=== PATIENT | male | born 1985 | race Caucasian/White ===

== ENCOUNTER 2017-05-12 08:22 | Day surgery (SDC) | payer OTHER ==
[~2017-05-12] VITALS: Ht 180.3 cm; Wt 100.0 kg
--- NOTE | 2017-05-12 06:47 | PCM.HPANE ---
Patient Data Surgeon Admitting Provider: Attending Provider:Danay Harris DPM Primary Care Physician:Jessica Other Provider:Kevin Chao Anesthesia Reason for Visit Right Foot Foreign Body With Soft Tissue Mass Ht/WT & BMI Height (Feet): 5 Height (Inches): 11 Weight (Kilograms): 100.43 Body Mass Index 30.00 Allergies Coded Allergies: No Known Allergies (Unverified , 05/05/17) Past Anesthesia History Anesthesia History: Denies:: Abnormal Airway, Anesthesia Reactions, Difficult Intubation, Fam Anesthesia Reaction, Fam Malignant Hypertherm, Malignant Hyperthermia Diabetes History Hx Diabetes?: No Medications Reported Medications Valacyclovir 500 Mg Tablet1,000 Mg PO DAILY PRN outbreak for 5 day course 05/05/17 Ibuprofen 800 Mg [id number] Mg PO TID PRN For Pain Ref 0 05/05/17 Cyclobenzaprine 10 Mg [id number] Mg PO BID PRN Spasm 05/05/17 Dextroamphetamine/Amphetamine (Adderall)15 Mg [id number] Mg PO DAILY Ref 0 05/05/17 History History of ENT Problems?: No HEENT History: Denies:: Abnormal Airway Cataracts Difficult Intubation Dysphagia Glaucoma Hearing Problem Sinus Problem TMJ Denture Type: None Teeth Condition: Within Normal Limits Hx of Heart Problems?: No Cardiovascular History: Denies:: AICD Abdominal Aortic Aneurism Atrial Fibrillation Cardiac Surgery Chest Pain Congestive Heart Failure Coronary Artery Disease Edema Heart Murmur Hypertension Irregular Heartbeat Pacemaker Peripheral Vascular Rheumatic Fever Thrombophlebitis Valvular Heart Disease Hx of Respiratory Problem?: No Respiratory History: Denies:: Asthma COPD Chest Surgery Cough Dyspnea Emphysema Hemoptysis Oxygen Administration Pneumonia Pulmonary Embolism Tuberculosis Use of C-PAP Machine Use of Inhalers / NEBS Hx Neurologic Problems?: No Hx of GI Problems?: No Gastrointestinal History: Denies:: Cirrhosis Diverticulitis Gall Bladder Disease Gastroesphageal Reflux Gastrointestinal Bleeding Heartburn Hepatitis Hiatal Hernia Liver Disease Rectal Bleeding Hx of Problems?: No Genitourinary History: Positive for:: HX of Hemodialysis Kidney Stones Urinary Tract Infection Male Hx: Denies:: Prostate Problems Hx Musculoskeletal Problems?: Yes Musculoskeletal History: Positive for:: Musculoskeletal Trauma (foreign body- soft tissue mass right foot current admission problem) Denies:: Back Injury Degenerative Joint Fibromyalgia Joint Replacement Myasthenia Gravis Osteoarthritis Rheumatoid Arthritis Systemic Lupus Hx of Psycho/Social Problems?: Yes Hx Surgeries?: Yes Hx Any Other Health Problems?: No Other History: Denies:: Cancer Hx Diabetes: No Hx Alcohol Use: NoHx Substance Use: NoHave You Smoked inLast 12 mo: No Stop/Bang P-Blood Pressure: treated: No B- Body Mass Index > 35 kg/m2: No A- Age over 50: No N- Neck Large Circumference: No G- Gender Male: Yes Risk Assessment Category Category 1A: Patient has history of documented sleep apnea, and HAS NOT received any narcotic, sedative or anesthesia administration during this stay. Category 1B: Patient has history of documented sleep apnea, and HAS received any narcotic , sedative or anesthesia administration during this stay Category 2: Patient has SUSPECTED Obstructive Sleep Apnea, and HAS received any narcotic , sedative or anesthesia administration during this stay. Category 3: Patient has SUSPECTED Obstructive Sleep Apnea and HAS NOT received narcotic, sedative or anesthesia administration during this stay. Category 4: Outpatient in Procedural Areas with known sleep apnea or who screen positive for High Risk via the STOP/BANG questionnaire. Exam Exam General Appearance: Alert, Oriented X3, Cooperative HEENT/AIRWAY: MP 2 Lungs: Clear to Auscultation Heart: Exam Unremarkable Plan Impression Patient chart reviewed, patient interviewed and anesthestic plan with risks, benefits, and alternatives discussed, and informed consent obtained. ASA Physical Status: ASA1 Normal Healthy Anesthetic Plan: MAC Bene/Risks/Altern/Consents: Yes HP Complete Prior to Induction: Yes Kevin Myers MD May 12, 2017 06:46
[~2017-05-12 08:22] MED LIST: AMPH15TA PO; CYCL10TA9 PO; CeFAZolin Inj 2 GM in IV Premix 1 EACH IV ONE; IBUP800T28 PO; VALA500T38 PO
[2017-05-12] MEDS ORDERED: Propofol 10,000 mCg/mL 20 mL Inj ONE (08:23)
[2017-05-12] MEDS ORDERED: fentaNYL-PF 50 mCg/mL 2 mL Inj ONE (08:23)
[2017-05-12] MEDS: Lactated Ringer's 1,000 ML IV SCH ×2 (08:27→10:56)
[2017-05-12] MEDS ORDERED: CeFAZolin 2 Gm/50 mL D5W Duplex Bag IV ONE (08:35)
[2017-05-12 08:54] VITALS: BP 122/74; PULSE 66; RESP 18; O2SAT 96
[2017-05-12] MEDS ORDERED: Dexamethasone 4 mg/mL Inj IM ONE (11:00)
[2017-05-12] MEDS ORDERED: Lidocaine MPF 2%-Epi 1:200,000 20mL Inj INFILTRATE ONE (11:00)
[2017-05-12] MEDS ORDERED: Lidocaine 1%-Epi 1:100,000 20 mL Inj INFILTRATE ONE (11:00)
[2017-05-12] MEDS ORDERED: Lactated Ringer's 500 ML IV PRN (11:04)
[2017-05-12] MEDS ORDERED: Lactated Ringer's 1,000 ML IV SCH (11:04)
[2017-05-12] MEDS ORDERED: HYDROmorphone 1 mg/mL Inj IVPUSH PRN (11:05)
[2017-05-12] MEDS ORDERED: EPHEDrine Sulfate 50 mg/mL Inj IVPUSH PRN (11:05)
[2017-05-12] MEDS ORDERED: Ondansetron 2 mg/mL 2 mL Inj IVPUSH PRN (11:05)
[2017-05-12] MEDS ORDERED: Atropine 0.4 mg/mL Inj IVPUSH PRN (11:05)
[2017-05-12] MEDS ORDERED: Dexamethasone 4 mg/mL Inj IVPUSH PRN (11:05)
[2017-05-12] MEDS ORDERED: Phenylephrine 10,000 mCg/mL Inj IVPUSH PRN (11:05)
[2017-05-12] MEDS ORDERED: fentaNYL-PF 50 mCg/mL 2 mL Inj IVPUSH PRN (11:05)
[2017-05-12] MEDS ORDERED: hydrALAZINE 20 mg/mL Inj IVPUSH PRN (11:05)
[2017-05-12] MEDS ORDERED: Labetalol 5 mg/mL 20 mL Inj IV PRN (11:05)
[2017-05-12 11:55] VITALS: BP 132/75; PULSE 84; RESP 18; O2SAT 98
--- NOTE | 2017-05-12 12:11 | PCM.ANEP1 ---
Post Anesthesia PACU Phase 1 Assessment Vital Signs Vital Signs Date Time Temp Pulse Resp B/P Pulse Ox O2 Delivery O2 Flow Rate FiO2 05/12/17 11:55 36.7 84 18 132/75 98 Room Air 05/12/17 08:54 36.3 66 18 122/74 96 Room Air Anesthetic Administered: MAC Level of Alertness: Awake, talking TRIMBLE's with Equal Strength: Yes Pain: No Nausea or Vomiting: No CV Function & Hydration Stable: Yes Airway Device: Oxygen Delivery: Room Air Lungs: Normal Air Movement PACU Phase 2 Assessment Complications: No Follow up Care: No Patient Instructions Provided: N/A Kevin Myers MD May 12, 2017 12:11
--- NOTE | 2017-05-12 12:13 | PCM.PODPO ---
Podiatry Operative Report Date of Service: May 12, 2017 Date of Service May 12, 2017 Pre Operative Diagnosis Right foot soft tissue mass Post Operative Diagnosis Right foot soft tissue mass Procedure Excision of soft tissue mass, right foot. Surgeon Surgeon: Danay Harris DPM Assistants: None Indication for Procedure Pain with weightbearing, palpable firm mass in medial plantar surface of hallux. Findings Firm nodular tissue adhered to the dermis and flexor paratenon. No fluid in the mass. Neurovascular tissue around the mass present. Details of Procedure Patient was identified in the preop holding area and brought to the operating room. He was placed on the operating table in supine position. The timeout protocol was completed and the patient's name and site of surgery confirmed. IV sedation was initiated, his right 1st ray anesthetized with Lidocaine with epinephrine, reinforced along the incision line. The right foot was prepped and draped in the usual aseptic manner. The incision was made curvilinearly over the soft tissue mass. Gradual dissection was done with a curved hemostat bluntly and a curved Iris scissors sharply to free up the nodular firm white soft tissue mass from the underlying flexor paratenon and the overlying dermis. Once the large mass was excised, another smaller one was identified and resected until the soft tissue appeared smooth to touch. The wound was irrigated with normal saline, then closed in layers with 4-0 Vicryl and skin with 3-0 Prolene. The dressing consisted of Dayday's silk, saline moistened gauze, and Kerlix and Coban. He was weaned off of anesthesia and taken to Day Surgery with vitals stable and vascular status to the right foot intact. Grafts, Implants: None Complications There were no periprocedural complications identified. Condition Stable Anesthetic Administered: MAC Drains: None Catheters: None Output, Estimated Blood Loss: 10 (ml) Blood Admin during surgery: No Surgical Cast or Splint: None Surgical Specimen Removed: Yes Specimen sent to Pathology: Yes Surgical Specimen description: Soft tissue mass, right foot. Post Operative Plan Weightbearing as tolerated with dressing in place. He may remove the surgical dressing and place a large Bandaid over the incision in 48 hours. I advised him not to shower with the incision exposed. Danay Harris DPM May 12, 2017 12:13
[2017-05-12] MEDS ORDERED: OXYC1TAB24 PO (12:16)
[2017-05-12] MEDS ORDERED: oxyCODONE-Acetamin 5-325 mg Tablet PO PRN (12:20)
[2017-05-12 12:36] VITALS: BP 140/78; PULSE 75; RESP 18; O2SAT 96
--- NOTE | 2017-05-15 16:36 | PATH ---
SURGICAL PATHOLOGY Attending Physician:Danay Harris CASE STATUS: Signed Out PATIENT NAME: MATT PHAM PID: [id number] : 1985 DATE COLLECTED:05/12/2017 21:09 SPECIMEN: Soft Tissue Mass, Biopsy CLINICAL HISTORY: RIGHT FOOT SOFT TISSUE MASS 1). 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 ICD10 M72.9 GROSS DESCRIPTION: The specimen is received in one formalin filled container labeled with the patient's name, sublabeled "right foot soft tissue mass" and consists of 2 portions of pink-high to high hilliard soft tissue which aggregate to 2.0 x 1.4 x 0.9 CM. The specimen is inked blue. The specimen is sectioned into 6 total pieces and entirely submitted in 3 cassettes. 05/12/2017DC MICRO DESCRIPTION: Sections are of a bland, variably cellular spindle cell neoplasm with ill-defined borders and vesicular growth pattern. There is no significant nuclear atypia; mitotic activity is inconspicuous. There is no necrosis. To further classify the spindle cell neoplasm a limited panel of immunohistochemical stains was performed (each with an appropriate positive control). The spindle cell population is positive for nuclear Beta-Catenin protein expression and is negative for S100 protein expression. Overall, the morphology and immunophenotype are consistent with fibromatosis. This test was developed and its performance characteristics determined by [facility]. It has not been cleared or approved by the [place]. Food and Drug Administration. The FDA has determined that such clearance or approval is not necessary. This test is used for clinical purposes. It should not be regarded as investigational or for research. ICD-9 CODES: CPT CODES: 1: 55510, 32228, 49911 Electronically Signed Out Major Christensen MD, Ph.D. [facility] [address], [place] [address] Technical component performed at [facility], [address], [place], [address]
== END 2017-05-12 23:59 | disposition home or self-care (01) ==
LOC: SAS 08:22
PROVIDERS: ATTEND Podiatrist
DX: S90.851D Superficial foreign body, right foot, subsequent encounter (principal); X58.XXXD Exposure to other specified factors, subsequent encounter; Y92.9 Unspecified place or not applicable; Z79.899 Other long term (current) drug therapy
CPT/HCPCS: 28192; J0690; J1100; J2250; J2704; J3010; J7120